=== PATIENT | female | born 1970 | race Caucasian/White ===

== ENCOUNTER → 2022-12-06 12:50 | Outpatient (CLI) | payer OTHER, SELFPAY ==
--- NOTE | ~2022-12-06 | XR_ITS ---
XR cervical spine 4-5V 12/06/2022 13:18 Indication: Neck pain Procedure: 4 view cervical spine Comparison: No prior studies for comparison. Findings: Straightening of cervical lordosis. Vertebral body heights are maintained. No significant d isc narrowing. No prevertebral soft tissue swelling. There is mild uncinate hypertrophy at C5-6 and C 6-7. Odontoid process is normal. Lung apices are normal. Impression: 1: Mild cervical spondylosis. Reviewed, dictated and finalized at location A. OMER RELATIONS ADVISOR Impression: 1: Mild cervical spondylosis.
--- NOTE | ~2022-12-06 | XR_ITS ---
XR lumbar spine 2-3V 12/06/2022 13:18 Indication: Low back pain Procedure: 3 views lumbar spine Comparison: No prior studies for comparison. Findings: There is disc narrowing at all lumbar levels. There is facet hypertrophy of the mid and low er lumbar spine. No evidence for spondylolisthesis. No acute fracture or traumatic malalignment. Ther e is mild levoscoliosis. Impression: 1: Moderate lumbar spondylosis. Reviewed, dictated and finalized at location A. ONENT INSPECTOR Impression: 1: Moderate lumbar spondylosis.
--- NOTE | ~2022-12-06 | XR_ITS ---
XR thoracic spine 2V 12/06/2022 13:17 Indication: Back pain Procedure: 3 views thoracic spine Comparison: Cervical spine series dated 12/06/2022 Findings: There is mild degenerative disc disease at multiple levels of the mid and lower thoracic sp ine. Normal thoracic kyphosis. Mild levoscoliosis. Vertebral body heights are maintained. No acute fr acture or traumatic malalignment. No paraspinal soft tissue abnormality. Pedicles intact. Impression: 1: Mild thoracic spondylosis. Reviewed, dictated and finalized at location A. ESS IMPROVEMENT ANALYST Impression: 1: Mild thoracic spondylosis.
== END ==
PROVIDERS: Visit Provider Chiropractor
DX: M47.894 Other spondylosis, thoracic region (principal); M47.896 Other spondylosis, lumbar region; M47.892 Other spondylosis, cervical region
CPT/HCPCS: 72050; 72070; 72100